=== PATIENT | female | born 1970 ===

== ENCOUNTER 2025-02-24 19:33 | Emergency (ER) | payer OTHER, SELFPAY ==
--- NOTE | ~2025-02-24 | CT_ITS ---
CLINICAL HISTORY: rib pain, fractures CT chest without contrast Comparison: None provided Findings: The heart is normal size. The visualized thyroid and mediastinum are unremarkable. The lungs are clear. The liver is low in attenuation. The bones are intact. IMPRESSION: No rib fracture identified. No definite acute process in the chest. Hepatic steatosis. This document has been electronically signed by: Raffi Bauman MD on 02/24/2025 21:00:32
[2025-02-24 19:35] VITALS: BP 116/79; PULSE 111; RESP 16; TEMP 36.7; O2SAT 94; BMI 25.0
--- NOTE | 2025-02-24 19:35 | ED.GENADULT ---
HPI - General Adult General Chief complaint: Dyspnea Stated complaint: difficulty breathing Time Seen by Provider: 02/24/25 20:56 Source: patient Mode of arrival: ambulatory Limitations: no limitations History of Present Illness ED Provider: JENNIFER GA PA-C HPI narrative: 55 year old female with pmhx significant for asthma/COPD, tobacco dependence with 30 pack year history presents to the ED today for evaluation of left lower rib pain x1 week. She states that while descending her stairs in the dark 1 week ago, she slipped causing her to fall onto her left side. Reports her ribs struck one of the steps. She denies head strike or LOC. Since this time has had localized pain to the area of impact (lower left anterolateral ribs). The pain is making it difficult to take a deep inspiration. She also reports URI symptoms over the past week consisting of cough and wheezing. Her cough is exacerbating her rib pain. She was evaluated at yesterday for symptoms and had a chest x-ray. She has not received the results of this imaging. She is concerned that she may have fractured a rib. She was also prescribed a course of azithromycin, prednisone and albuterol for suspected bronchitis. She is not dependent on supplemental oxygen at home. Denies fever, chills, N/V, hemoptysis, LE pain/swelling. No recent travel or long car rides. Related Data Previous Rx's ?Medication ?Instructions ?Recorded albuterol sulfate 90 mcg/actuation 2 inh inhalation Q20M PRN 02/25/25 breath activated powder inhaler shortness of breath or wheezing #1 ea benzonatate 100 mg capsule 100 mg PO BID PRN cough #20 caps 02/25/25 oxycodone 5 mg tablet 5 mg PO Q8H PRN pain #9 tabs 02/25/25 Allergies Allergy/AdvReac Type Severity Reaction Status Date / Time No Known Allergies Allergy Verified 02/24/25 19:37 Review of Systems Review of Systems: Yes all other systems are reviewed and are negative PMFSH Past Medical History Attestation statement: The following information was validated with the patient. Source: old records reviewed and nursing notes reviewed Social History Social History Alcohol intake: current Alcohol intake frequency: 0-2 drinks per day Smoked in Last 30 Days: Yes Use of substances other than those prescribed or required for medical reasons: Yes Substance Use Type: Marijuana Substance Use Frequency: Daily Advance Directives: No Advance Directives Information Provided: No Do you have a plan to hurt others: No Plan Patient : No Physical Exam ED Vital Signs: Vital Signs - 24 hr 02/24/25 19:35 02/24/25 20:39 02/24/25 21:56 Temperature 98.1 F Pulse Rate 111 H 84 86 Respiratory Rate 16 30 H 18 Blood Pressure 116/79 Pulse Oximetry 94 97 Oxygen Delivery Method Room Air Room Air 02/24/25 22:10 02/25/25 01:26 Temperature 97.4 F 97.7 F Pulse Rate 97 82 Respiratory Rate 26 H 20 Blood Pressure 120/91 H 107/73 Pulse Oximetry 96 94 Oxygen Delivery Method Room Air Room Air BMI result Body Mass Index 25.0 Initially tachycardic, vitals otherwise WNL General: Well appearing, in no acute distress. Skin: Warm, dry, intact. No rashes or lesions. Head: Normocephalic, atraumatic. EENT: Hearing is intact b/l. Conjunctiva clear. Sclera is anicteric. PERRLA. EOM intact. Moist mucous membranes.? Neck: Supple without LAD. FROM. Trachea midline.? Cardiac: ttp along left lower anterolateral chest wall, no crepitus or palpable deformity, symmetric rise/fall of chest, RRR Lungs: No increased effort of breathing, bronchospastic cough noted, no tripoding, expiratory wheezes throughout Abdomen: Soft, non-tender, non-distended. No rebound tenderness or guarding. Positive BS x4. Back: No midline spinous or paraspinal tenderness. No step off deformity. Ext: No pitting edema. No calf tenderness bilaterally Neuro: AOx3. Normal speech. Ambulating with steady gait. Psych: Appropriate mood and affect. Responds appropriately to questions. Course Course Course Narrative: Rapid medical examination performed in triage by Radha Almanzar PA-C. Patient is a 55 year old assigned female at presenting to the emergency department with chest pain and shortness of breath. Patient states that she is currently being evaluated for rib fractures because she has poor bone health secondary to chronic prednisone use. Detailed physical exam and review of systems are deferred to the varnish dipper. EKG, labs, imaging ordered. Patient placed back in the waiting room pending room availability and results. [facility] record shows an acute nondisplaced right 9th rib fx. Reevaluation(s) Reevaluation #1: CBC showing slight leukocytosis to 11.4 without left shift. Likely secondary to recent prednisone. Initial chemistry showing hypokalemia to 2.8, hypomagnesemia to 1.5. Likely secondary to chronic EtOH abuse. She received IV/p.o. Repletion with improvement to potassium of 4.4 and magnesium of 2.2. No other acute electrolyte abnormalities requiring intervention. No SHANNON. Liver function at baseline. Troponin undetectable. EKG showing normal sinus rhythm, rate of 95 beats per minute, QT 346, no acute ischemic changes or ST elevations. D-dimer undetectable, PE unlikely. Will hold on CTA chest. CT chest without evidence of rib fracture. Rib pain improved with IV morphine. Advised tylenol/motrin for rib pain, oxy sent for break through pain. Likely bronchitis - treated with IV solumedrol, mag, albuterol tx with significant improvement in breathing. not hypoxic. satting 87-98% on RA. She is currently being treated with azithromycin and Prednisone outpatient for bronchitis. Advised to continue this therapy. I will send an albuterol inhaler to her pharmacy. Rodrigo Peters sent for cough. Patient has remained stable throughout ED visit today. Discussed worrisome signs and symptoms and when to return to the ED. All questions answered at this time. Patient is agreeable with disposition and stable for discharge. Medications Administered Discontinued Medications Generic Name Dose Route Start Last Admin Trade Name Lucianq PRN Reason Stop Dose Admin Albuterol/Ipratropium 3 ml 02/24/25 21:53 02/24/25 21:54 Albuterol/Iprat 2.5/0.5mg 3 Ml Ampul.Neb INHALE 02/24/25 21:54 3 ml ONCE ONE Administration Potassium Chloride 10 meq in 100 mls @ 100 mls/hr 02/24/25 21:00 02/25/25 00:55 Potassium Chloride/H20 IV 02/24/25 22:59 Infused Q1H QUE Infusion Magnesium Sulfate 2 gm in 50 mls @ 150 mls/hr 02/24/25 21:35 02/24/25 22:33 Magnesium Sulfate/H2o IV 02/24/25 21:54 Infused ONCE ONE Infusion Sodium Chloride 1,000 mls @ 999 mls/hr 02/24/25 21:45 02/24/25 23:28 Ns IV 02/24/25 22:45 Infused .Q1H1M QUE Infusion Ketorolac Tromethamine 30 mg 02/24/25 21:51 02/24/25 22:02 Ketorolac Tromethamine 30 Mg/Ml Vial IVPUSH 02/24/25 21:52 30 mg ONCE ONE Administration Lorazepam 1 mg 02/24/25 21:51 02/24/25 22:03 Lorazepam 1 Mg Tablet PO 02/24/25 21:52 1 mg ONCE ONE Administration Methylprednisolone Sodium Succinate 80 mg 02/24/25 21:35 02/24/25 21:56 Methylprednisolone Sod Succ 125 Mg/2 Ml Vial IVPUSH 02/24/25 21:36 80 mg ONCE ONE Administration Morphine Sulfate 4 mg 02/24/25 23:42 02/24/25 23:59 Morphine Sulfate 4 Mg/Ml Cartridge IVPUSH 02/24/25 23:43 4 mg ONCE ONE Administration Protocol Potassium Chloride 60 meq 02/24/25 20:59 02/24/25 21:29 Potassium Chloride Packet 20 Meq Packet PO 02/24/25 21:00 60 meq ONCE ONE Administration Procedures Smoking Cessation Time Spent Discussing Smoking Cessation w/Patient (min): 5 Patient Acknowledges Need for Cessation: Yes Medical Decision Making Medical Decision Making [facility] Narrative: 55 year old female with pmhx significant for asthma/COPD, tobacco dependence with 30 pack year history presents to the ED today for evaluation of left lower rib pain x1 week. Tachycardic to 111 on arrival. Satting 97% on room air. on exam, ttp along left lower anterolateral chest wall, no crepitus or palpable deformity, symmetric rise/fall of chest, RRR, no increased effort of breathing, no tripoding, bronchospastic cough noted, expiratory wheezes throughout lung [place]. Differential diagnosis includes anemia, electrolyte abnormality, viral syndrome, pneumonia, bronchitis, chest wall contusion, rib fracture, PE, ACS, arrhythmia Plan for labs, viral swabs, EKG, CT chest, breathing treatment, re-evaluation. Differential Diagnosis Differential Diagnoses: The differential diagnosis associated with the presentation includes As above Admission/Observation Not indicated Lab Data [facility] Lab Attestation statement: I reviewed the patient's lab results. As above 02/24/25 19:54 02/25/25 01:26 Labs: Lab Results 02/24/25 02/24/25 02/24/25 Range/Units 19:54 19:58 23:55 WBC 11.4 H (4.8-10.8) X10*3/uL RBC 4.11 L (4.20-5.50) X10*6/uL Hgb 14.7 (12.0-16.0) g/dl Hct 40.6 (37.0-47.0) % MCV 98.8 H (80.0-98.0) fL MCH 35.8 H (27.0-33.0) pg MCHC 36.2 H (31.0-35.0) g/dl RDW 13.6 (11.0-16.0) % Plt Count 184 (160-400) X10*3/uL MPV 8.6 L (9.4-12.3) fL Immature Gran % (Auto) 0.4 (0.0-0.4) % Neut % (Auto) 55.8 (45-73) % Lymph % (Auto) 33.9 (20-40) % Rapides % (Auto) 8.9 (2-11) % Eos % (Auto) 0.6 (0-4) % Baso % (Auto) 0.4 (0-2) % Lymph # (Auto) 3.9 (1.2-4.9) X10*3/uL [place] # (Auto) 1.0 (0.1-1.2) X10*3/uL Eos # (Auto) 0.1 (0.0-0.4) X10*3/uL Baso # (Auto) 0.1 (0.0-0.2) X10*3/uL Abs Immat Gran (auto) 0.05 H (0.00-0.03) X10*3/uL Absolute Neuts (auto) 6.3 (2.0-8.3) x10*3/uL Absolute Nucleated RBC 0.000 (0.0-0.012) X10*3/uL Nucleated RBC % (auto) 0.0 (0.0-0.2) /100WBC D-Dimer High Sensitivty < 150 NG/ML VBG pH 7.46 H (7.32-7.43) VBG pCO2 31 mmHg VBG pO2 104 mmHg VBG HCO3 22 (22-26) mmol/L VBG O2 Saturation 100.0 % VBG Base Excess -0.3 mmol/L Sodium 140 (135-145) mmol/L Potassium 2.8 L* (3.3-5.1) mmol/L Chloride 101 (96-108) mmol/L Carbon Dioxide 23 (22-29) mmol/L Anion Gap 19 (12-20) BUN 18 H (9-16) mg/dL Creatinine 0.75 (0.5-1.4) mg/dL Estim Creat Clear Calc 79.2 Estimated GFR > 60 Random Glucose 99 (60-115) mg/dL Calcium 9.4 (8.4-10.2) mg/dL Magnesium 1.5 L (1.6-2.6) mg/dL Total Bilirubin 0.7 (0.0-1.0) mg/dL AST 42 H (5-31) U/L ALT 31 (0-31) U/L Alkaline Phosphatase 92 (39-117) U/L Troponin I High Sens < 2.7 (<3.5-17.0) ng/L Total Protein 7.4 (6.5-8.0) g/dL Albumin 4.5 (3.5-5.0) g/dL 02/25/25 Range/Units 01:26 WBC (4.8-10.8) X10*3/uL RBC (4.20-5.50) X10*6/uL Hgb (12.0-16.0) g/dl Hct (37.0-47.0) % MCV (80.0-98.0) fL MCH (27.0-33.0) pg MCHC (31.0-35.0) g/dl RDW (11.0-16.0) % Plt Count (160-400) X10*3/uL MPV (9.4-12.3) fL Immature Gran % (Auto) (0.0-0.4) % Neut % (Auto) (45-73) % Lymph % (Auto) (20-40) % Rapides % (Auto) (2-11) % Eos % (Auto) (0-4) % Baso % (Auto) (0-2) % Lymph # (Auto) (1.2-4.9) X10*3/uL [place]ides # (Auto) (0.1-1.2) X10*3/uL Eos # (Auto) (0.0-0.4) X10*3/uL Baso # (Auto) (0.0-0.2) X10*3/uL Abs Immat Gran (auto) (0.00-0.03) X10*3/uL Absolute Neuts (auto) (2.0-8.3) x10*3/uL Absolute Nucleated RBC (0.0-0.012) X10*3/uL Nucleated RBC % (auto) (0.0-0.2) /100WBC D-Dimer High Sensitivty NG/ML VBG pH (7.32-7.43) VBG pCO2 mmHg VBG pO2 mmHg VBG HCO3 (22-26) mmol/L VBG O2 Saturation % VBG Base Excess mmol/L Sodium 138 (135-145) mmol/L Potassium 4.4 D (3.3-5.1) mmol/L Chloride 108 (96-108) mmol/L Carbon Dioxide 20 L (22-29) mmol/L Anion Gap 14 (12-20) BUN 16 (9-16) mg/dL Creatinine 0.59 (0.5-1.4) mg/dL Estim Creat Clear Calc 100.7 Estimated GFR > 60 Random Glucose 131 H (60-115) mg/dL Calcium 8.3 L D (8.4-10.2) mg/dL Magnesium 2.2 (1.6-2.6) mg/dL Total Bilirubin (0.0-1.0) mg/dL AST (5-31) U/L ALT (0-31) U/L Alkaline Phosphatase (39-117) U/L Troponin I High Sens (<3.5-17.0) ng/L Total Protein (6.5-8.0) g/dL Albumin (3.5-5.0) g/dL Independent Interpretation I performed an independent interpretation of an: EKG and CT Scan Interpretation: CT chest without rib fracture EKG showing normal sinus rhythm with a rate of 95 beats per minute, QT 346, no acute ischemic changes or ST elevations Radiology Impression Discussion of test interpretation with radiology: I have reviewed the radiologist's reading. Radiologist Impression: Date of Service: 02/24/25 Procedure(s): CT chest wo IV con Accession Number(s): [id number] cc: Radha Almanzar; Physician,Unknown ~ Report Number: [id number]: Total DLP = 221.00 mGy-cm Reason for Exam: rib pain, fractures CLINICAL HISTORY: rib pain, fractures CT chest without contrast Comparison: None provided Findings: The heart is normal size. The visualized thyroid and mediastinum are unremarkable. The lungs are clear. The liver is low in attenuation. The bones are intact. IMPRESSION: No rib fracture identified. No definite acute process in the chest. Hepatic steatosis. This document has been electronically signed by: Raffi Bauman MD on 02/24/2025 21:00:32 External Record Review External record reviewed: Inpatient record Prescription Management I considered prescription management with: Pain Medication Chronic Conditions Patient?s care impacted by: Other (asthma/copd) Social Determinants Patient?s care significantly limited by Social Determinants of Health including: Other Social Determinant of Health Critical Care Time Critical Care Time Critical Care Time: No Discharge Plan Discharge Clinical Impression: Bronchitis, Rib pain, Hypokalemia, Hypomagnesemia Patient Disposition: Home, Self-Care Instructions: Hypokalemia (ED), Hypomagnesemia (ED) Additional Instructions: You were evaluated in the ED today for rib pain and cough. You were blood work shows low levels of potassium and magnesium. These were repleted in the ED today. Please follow up with your PCP outpatient for repeat blood work to ensure these levels remained stable. Your cardiac enzyme and EKG are normal. The CT scan of your chest does not demonstrate any acute rib fracture. Your D-dimer, a lab test that indicates high probability for clots in your lungs, is undetectable. This is reassuring. I do not feel as though you need a CAT scan with contrast of your chest. Overall, your workup is reassuring. You may take Tylenol and Motrin at home as needed for pain/discomfort. I am sending oxycodone, a controlled pain medication, to your pharmacy for you to take for breakthrough pain control. Please use this with caution as opioid pain medications have addictive properties. Opioid pain medications can often cause constipation. I recommend taking this with an over the counter laxative and/or stool softener to help move your bowels. Take your current prescriptions of azithromycin and prednisone to completion. I have sent an albuterol inhaler to your pharmacy. STOP SMOKING. THIS IS MAKING YOUR SYMPTOMS WORSE. Return with any new or worsening symptoms. In the case of an emergency call 911. Prescriptions: New benzonatate 100 mg capsule 100 mg PO BID PRN (Reason: cough) Qty: 20 0RF albuterol sulfate 90 mcg/actuation aerosol powdr breath activated 2 inh inhalation Q20M PRN (Reason: shortness of breath or wheezing) Qty: 1 0RF oxycodone 5 mg tablet 5 mg PO Q8H PRN (Reason: pain) Qty: 9 0RF Rx Instructions: Partial Fill upon patient request. Referrals: Physician,Unknown J [Primary Care Provider, Medical] Stand Alone Forms: Work/School Release Interventions: ED Discharge Assessment Last Done: 02/25/25 02:34 Discharge Date/Time: 02/25/25 02:36 Print Language: Slovenian
--- NOTE | 2025-02-24 19:38 | ECG_ITS ---
Test Reason : SOB Blood Pressure : */* mmHG Vent. Rate : 95 BPM Atrial Rate : 95 BPM P-R Int : 144 ms QRS Dur : 80 ms QT Int : 346 ms P-R-T Axes : 71 56 41 degrees QTcB Int : 434 ms Normal sinus rhythm Normal ECG No previous ECGs available Referred By: Radha Almanzar Electronically Signed By: REECE DE JESUS
[2025-02-24 19:58] LABS: MANUAL DIFF FLAG NO
[2025-02-24 20:01] LABS: Hematocrit 40.6 % (37.0-47.0); Hemoglobin 14.7 g/dl (12.0-16.0); Imm Gran Abs Auto 0.05 X10*3/uL (0.00-0.03); Imm Gran Pct Auto 0.4 % (0.0-0.4); Lymphocytes Absolute Auto 3.9 X10*3/uL (1.2-4.9); Mean Corpuscular HGB Conc 36.2 g/dl (31.0-35.0); Mean Corpuscular Hemoglobin 35.8 pg (27.0-33.0); Mean Corpuscular Volume 98.8 fL (80.0-98.0); NRBC Abs Auto 0.000 X10*3/uL (0.0-0.012); NRBC Pct Auto 0.0 /100WBC (0.0-0.2); Platelet Count 184 X10*3/uL (160-400); Red Blood Count 4.11 X10*6/uL (4.20-5.50); Venous Blood Gas Refer to POC result; White Blood Count 11.4 X10*3/uL (4.8-10.8)
[2025-02-24 20:02] LABS: VBG HCO3 22 mmol/L (22-26); VBG O2 % Saturation 100.0 %
--- NOTE | 2025-02-24 20:19 | PC.NURSE ---
Critical K of 2.8 taken from Crystal in the lab, pneumatic drum sander Xio made aware.
[2025-02-24 20:20] LABS: Alanine Aminotransferase 31 U/L (0-31); Albumin Level 4.5 g/dL (3.5-5.0); Alkaline Phosphatase 92 U/L (39-117); Anion Gap 19 (12-20); Aspartate Amino Transferase 42 U/L (5-31); Blood Urea Nitrogen 18 mg/dL (9-16); Calcium 9.4 mg/dL (8.4-10.2); Carbon Dioxide 23 mmol/L (22-29); Chloride 101 mmol/L (96-108); Creatinine Clr Calc Pharmacy 79.2; Estimated Glomerular Filt Rate > 60; Potassium 2.8 mmol/L (3.3-5.1); Sodium 140 mmol/L (135-145); Total Protein 7.4 g/dL (6.5-8.0)
[2025-02-24 20:21] LABS: Troponin-I High Sensitivity < 2.7 ng/L (<3.5-17.0)
[2025-02-24 20:39] VITALS: PULSE 84; RESP 30; O2SAT 97
--- OUTSIDE RECORDS SUMMARY | 2025-02-24 21:12 | XMS_ITS | Encounter Summary ---
Author Organization [facility] Address [address] [employer] [facility] [address] [place] [address] Phone Care Team Providers Care Laserist Name Role Phone Carmen Lo MD Unavailable + [phone] Unknown, Unknown Primary Care Provider Tamera Diallo PA-C Primary Care Provider + [phone] Encounter Details Date Type Department Care Team (Late st Contact Info) Description 07/11/2024 Procedure Pass [facility], [address] [address] Social History Tobacco Use Types Packs/Day Years Used Date Smoking Tobacco: Former Cigarettes 1 28 Q uit: 2024 Smokeless Tobacco: Never Comments:Quit smoking two we eks ago. Alcohol Use Standard Drinks/Week Comments Yes 2 (1 standard drink = 0.6 oz pur e alcohol) 2 drinks/week Child or Family Care Answer Date Record ed Do you have problems with on e of the following making it difficult for you to work, study, or receive health care? No 08/12/2021 Education Answer Date Recorded Are you interested in more education? Not on jairo e 08/20/2023 Are you concerned about learning? Not on file 08/20/2023 No 08/20/2023 No 08/20/2023 Food Answer Date Recorded Within the past 6 months we worried whether our food would run out before we got money to buy more. Sometimes True 022 Within the past 6 months the food we bought just didn't last and we didn't have enough money to get more. Never True 07/27 Residential Stability Answer Date Recor ded What is your housing situation today? I have misty walker 08/12/2021 How many times have you move d in the past 12 months? Zero (I did not move) 08/12/2021 06 Are you worried that in t he next 2 months, you may not have your own housing to live in? No 08/12/2021 Paying for Meds Answer Date Recorded Do you have trouble paying for medicines? I irma se not to answer 08/12/2021 Paying Utility Bills Answer Date Record ed Do you have trouble paying y our heating or electricity bill? I choose not to answer 08/12/2021 Transportation Answer Date Recorded Has the lack of transportati on kept you from medical appointments or from getting medications? No 08/12/2021 Unemployment Answer Date Recorded Are you currently unemployed or working on a part-time or temporary basis, and looking for work? No 08/12/2021 Digital Access Answer Date Recorded No 10/20/2022 No 10/20/2022 Reliable internet access at home? Not on file 10/20/2022 Device with a working camera? Not on file Intimate Partner Violence Answer Date R ecorded Denied Basic Needs Not on file 07/11/2024 In the past 12 months have y ou been in a relationship with a person who hurts, threatens, or tries to control you? No 07/11/2024 Worried food would run out Not on file 07/11 In the past 12 months have y ou been in a relationship with a person who hurts, threatens, or tries to control you? No 07/11/2024 Comments No Sex and Gender Information Value Date Recorded Sex Assigned at Not on file Legal Sex Female 7:01 PM EST Gender Identity Not on file Sexual Orientation Not on file documented as of this encounter Plan of Treatment Not on file documented as of this encounter Visit Diagnoses Not on filedocumented in this encounter Additional Health Concerns Assessment Noted Time PHQ-2 Depression Total Score: 0 07/11/19 25 10:39 AM EST documented as of this encounter Care Teams Laserist Relationship Specialty Start Date End Date Unknown, Unknown, MD PCP - General 11/25/23 07/29/24 Tamera Carter PA-C [address] [place] [address] [email or web address] PCP - General Physician Supervisor Histology 07/30/24 Carmen Lo MD [address] [address] Gynecology 07/04/19 documented as of this encounter Additional Source Comments The information contained in this document represents components of the legal health record. It is not the complete legal health record.[facility]
--- OUTSIDE RECORDS SUMMARY | 2025-02-24 21:12 | XMS_ITS | Encounter Summary ---
Author Organization [facility] Address [address] [facility] [address] [place] [address] Phone Care Team Providers Care Detective Sergeant Name Role Phone Carmen Lo MD Unavailable + [phone] Unknown, Unknown Primary Care Provider Tamera Diallo PA-C Primary Care Provider + [phone] Encounter Details Date Type Department Care Team (Late st Contact Info) Description 07/11/2024 Procedure Pass [facility], Ct Scan - [address] [address] Social History Tobacco Use Types Packs/Day Years [...] documented as of this encounter Care Teams Detective Sergeant Relationship Specialty Start Date End Date Unknown, Unknown, PCP - General 11/25/23 07/29/24 Tamera Carter PA-C [address] [place] [address] [email or web address] PCP - General Physician Road Mechanic 07/30/24 Carmen Lo MD [address] [place] [address] [address] Gynecology 07/04/19 documented as of this encounter Additional Source Comments The information contained in this document represents components of the legal health record. It is not the complete legal health record.[facility]
--- OUTSIDE RECORDS SUMMARY | 2025-02-24 21:12 | XMS_ITS | Encounter Summary ---
Author Organization [facility] Address [address] [facility] [address] [place] [address] Phone Care Team Providers Care Bleacher [employer] Name Role Phone Carolynn Owens BULK TANK DRIVER Primary Care Provider [phone] Carmen Lo MD Unavailable [phone] Unknown, Unknown Primary Care Provider Todd simon Unknown, Unknown Primary Care Provider Tamera Diallo PA-C Primary Care Provider + [phone] Encounter Details Date Type Department Care Team (Late st Contact Info) Description 08/12/2021 Procedure Pass [facility], Ct Scan - [address] [address] Social History Tobacco Use Types Packs/Day Years Used Date Smoking Tobacco: Every Day Cigarettes 1 28 Smokeless Tobacco: Never Alcohol Use Standard Drinks/Week Comments Yes 0 (1 standard drink = 0.6 oz pur e alcohol) 2 vodka sodas per day Child or Family Care Answer Date Record ed Do you have problems with on e of the following making it difficult for you to work, study, or receive health care? No 08/12/2021 Education Answer Date Recorded Are you interested in help w ith more adult education (for example, completing high school, GED, job training, learning the Mohawk language, technical skills, or developing parenting skills)? No 08/12/2021 Food Answer Date Recorded Within the past [...] basis, and looking for work? No 08/12/2021 Comments No Sex and Gender Information Value [...] Noted Time PHQ-2 Depression Total Score: 0 08/13/19 22 1:03 PM EDT documented as of this encounter Care Teams Bleacher [employer] Relationship Specialty Start Date End Date Carolynn Owens NP [email or web address] PCP - General Family Medicine 05/30/17 08/20/23 Unknown, Unknown, PCP - General 08/21/23 11/24/23 Unknown, Unknown, PCP - General 11/25/23 07/29/24 Tamera Carter PA-C [address] [place] [address] [email or web address] PCP - General Physician Staff Development Educator 07/30/24 Carmen Lo MD [address] [address] Gynecology 07/04/19 documented as of this encounter Additional Source Comments The information contained in this document represents components of the legal health record. It is not the complete legal health record.[facility]
--- OUTSIDE RECORDS SUMMARY | 2025-02-24 21:12 | XMS_ITS | Clinical Summary ---
Author Organization [facility] Address [address] [facility] [address] [place] [address] Phone Care Team Providers Care Runway Model Name Role Phone Carmen Lo MD Unavailable + [phone] Tamera Carter PA-C Primary Care Provider + [phone] Allergies No known active allergies Medications dextroamphetamine -amphetamine (ADDERALL) 10 mg Tab tablet 10 mg. Active albuterol 90 mcg/actuation inhalerIndication s:Mild intermittent asthma without complication Inhale 2 puffs into the lungs every 6 (six) hours as needed for wheezing. 18 g 2 07/11/2024 Active Active Problems Problem Noted Date Diagnosed Date Routine general medical exam ination at a health care facility 07/11/2024 Assessment & Plan (07/11/2024 3:47 PM EST): Routine lab work ordered. Colon cancer screening 07/11/2024 Assessment & Plan (07/11/2024 3:48 PM EST): Patient declines colonoscopy at this time. She has no family history of colon cancer. Due to her Crohn's disease, she is at higher risk for false positive/negative Cologuard, discussed this with the patient, she would like to continue moving forward with the Cologuard. Cologuard ordered. Former smoker 07/11/2024 Assessment & Plan (07/11/2024 3:47 PM EST): Patient quit smoking approximately 10 days ago. Congratulated the patient on this achievement. She is due for a low-dose CT scan of her chest as she has a 28 pack year history. Low-dose CT scan ordered. Encounter for screening mamm ogram for malignant neoplasm of breast 07/11/2024 Assessment & Plan (07/11/2024 3:48 PM EST): Overdue for mammogram, mammogram ordered. Elevated blood pressure read ing without diagnosis of hypertension 07/11/2024 Assessment & Plan (07/11/2024 3:49 PM EST): Patient noted to have an elevated blood pressure on exam today at 140/92. Previous blood pressure in October 2023 was 145/90. She denies history of hypertension. Advised the patient that she should start taking her blood pressure at home for the next 2 weeks and log it. She should take it when she is most relaxed. Will follow-up in 4 weeks to reassess. Immunization declined 04/01/2022 COPD exacerbation 03/24/2022 Assessment & Plan (05/12/2022 7:49 AM EST): Risks/benefits of therapy explained, including MAT and other treatment options. Start steroid inhaler Albuterol prn Cough Syrup with codeine Educated re potential side effects, etc. Assessment & Plan (03/24/2022 7:59 AM EDT): Long discussion and educ of patient today She has COPD Continue to smoke but has cut down Still with sig wheezing on exam and decreased bs No overt s/s bacterial infection Trial of Medrol Continue inhalers Not ready to return to work yet Crohn's disease of small intestine without compl ication 03/16/2022 Assessment & Plan (05/13/2022 5:19 PM EST): Discussed the fact that she has not f/u with GI I rec'd ref to GI to get better control of the Crohn's I'm going to defer FMLA paperwork on this to Carolynn, her PCP COPD with acute exacerbation 03/03/2022 Assessment & Plan (05/13/2022 5:21 PM EST): Risks/benefits of therapy explained, including MAT and other treatment options. Educated on inhaler uses. Not using Advair as rec'd, I.e. bid Add Medrol educ re potential SEs of med To ER for severe sxs COVID-19 03/03/2022 Assessment & Plan (05/12/2022 7:49 AM EST): Supportive care to continue Rest, hydration Call immediately if worsening symptoms Assessment & Plan (04/01/2022 9:11 AM EDT): Overall patient 85% improved from recent Covid 19 infection with bacterial sinusitis and COPD exacerbation Continue inhalers as directed Stop smoking! Sick note done today during visit F/u PCP Assessment & Plan (03/24/2022 7:59 AM EDT): Likely precipitated the above. Slowly resolving Refill coush syrup - educ re risks of Codeine Assessment & Plan (03/16/2022 3:06 PM EDT): Still seems to be suffering lingering symptoms Fatigue, sinus/nasal congestion Still smoking but has dramatically cut down on number of cig No overt sob Does feel that the Advair is helping a little bit Having more URI sxs Needs note stating when's she's going back I explained to her that I can't predict 1-2 weeks in the future I also need to examine her She agreed to come in for exam early next week Alcohol abuse 11/01/2019 Belching 11/15/2018 Assessment & Plan (07/11/2024 3:45 PM EST): She notes chronic belching and gas in her stomach. She had an endoscopy more than 10 years ago, declines repeat endoscopy. Will obtain H. pylori breath test. [facility] referral placed. Anxiety 03/31/2017 Crohn disease 03/31/2017 Assessment & Plan (07/11/2024 3:47 PM EST): Patient with a history of Crohn's disease, had a colonoscopy and endoscopy more than 10 years ago. No longer following with [facility], most notable symptoms include emesis and diarrhea. On exam having left lower and left upper quadrant abdominal tenderness to palpation. She is not on any medications for her Crohn's disease. Discussed with the patient that I do think is important that she follows up with GI as treatment has changed within the past 10 years and she may find it beneficial for her. [facility] referral placed. Assessment & Plan (05/12/2022 7:50 AM EST): Deferred any questions re Crohns and FMLA to her PCP, Carolynn Patient not being followed by GI and currently not actively being treated Assessment & Plan (04/01/2022 9:13 AM EDT): Patient requesting FMLA paperwork Regarding her Crohns I explained that she needs to be seeking active treatment of the disease especially since she is requesting excused absences from work for the symptoms She agrees to f/u with her GI Doc - Dr. Roe I'll defer FMLA paperwork to GI vs. Her PCP Assessment & Plan (03/24/2022 8:01 AM EDT): Discussed with patient today She's requesting FMLA for the Crohns However, she doesn't see GI regularly I told her I would cover her sick back request for her current Covid COPD exacerbation with aggravation of Crohns but that she'd have to go back to GI for Crohns management I also told her I would defer FMLA paperwork re her Crohns to her regular PCP Assessment & Plan (03/16/2022 6:19 PM EDT): Patient requesting FMLA paperwork for her Crohns Disease I told her that her specialist should be filling this out Mild intermittent asthma without complication Assessment & Plan (07/11/2024 3:44 PM EST): Patient with a history of asthma, has an albuterol inhaler but does not often use it. She is interested in her refill today, order placed. Tobacco abuse 03/31/2017 Assessment & Plan (05/13/2022 5:22 PM EST): Strongly advised her to stop smoking completely Due to fci risks Patient verbalized understanding and agreement of the above Assessment & Plan (05/12/2022 7:51 AM EST): 3-10 Minutes spent during visit on Tobacco Use Education, Counseling and Cessation. Patient educated extensively on risks and benefits of meds Educated that smoking currently while sick with COPD Exacerbation is extremely unsafe Patient verbalized understanding and agreement of the above Assessment & Plan (04/01/2022 9:26 AM EDT): Strongly Encouraged patient to stop smoking Assessment & Plan (03/24/2022 8:02 AM EDT): I, again, strongly encouraged her to stop smoking!! Attention deficit disorder 03/31/2017 Resolved Problems Problem Noted Date Diagnosed Date Resolved Date Overactive child 03/31/2017 03/31/2017 Encounters Date Type Department Care Team Description 01/22/2025 11:33 AM EDT - 01/22/2025 11:59 PM EDT Hospital Encounter [address] [address] Tamera Carter PA-C Discharge Disposition: Home or Self Care 07/11/2024 Procedure Pass [address] [address] from Last 3 Months Immunizations Immunization Administration Dates Next Due Influenza Quadrivalent Preservative Free IM 10/2019 Family History Medical History Relation Comments Arthritis Father Cancer Maternal Grandmother Arthritis Mother Atrial fibrillation Mother Hypertension Mother Breast cancer Neg Hx Relation Status Comments Brother Alive Father Alive Maternal Grandmother Mother Alive Social History Tobacco Use Types Packs/Day Years [...] your housing situation today? I have misty sing 08/12/2021 How many times have you move [...] on file Sexual Orientation Not on file Last Filed Vital Signs Vital Sign Reading Time Taken Comments Blood Pressure 140/92 07/11/2024 2:54 PM EST Pulse 69 07/11/2024 2:54 PM EST Temperature 36.6 C (97.8 F) 07/11/2024 2:54 PM EST Respiratory Rate 16 07/11/2024 2:54 PM EST Oxygen Saturation 97% 07/11/2024 2:54 PM EST Inhaled Oxygen Concentration - - Weight 68 kg (150 lb) 10/10/2024 10:45 AM EDT Height 162.6 cm (5' 4 ) 10/10/2024 10:45 AM EDT Body Mass Index 25.75 10/10/2024 10:45 AM EDT Plan of Treatment Health Maintenance Due Date Last Done Comments Adult Td,Tdap Booster 1970 PNEUMOCOCCAL VACCINES (50+ years) (1 of 2 - PCV) 1989 COLOGUARD 2015 FIT TEST 2015 FOBT 2015 SIGMOIDOSCOPY 2015 VIRTUAL COLONOSCOPY 2015 ZOSTER VACCINES (1 of 2) 02/05/2020 COLONOSCOPY 07/05/2021 07/05/2011 COLORECTAL CANCER SCREENING 07/05/2021 PAP SMEAR 10/20/2024 10/20/2021 SCREENING FOR DIABETES 10/20/2024 10/20/2021 INFLUENZA VACCINE (#1) 2024 07/04/2019 COVID-19 VACCINE ( - season) 2025 DEPRESSION SCREENING 07/11/2025 07/11/2024 SMOKING Hx and SMOKELESS TOBACCO SCREENING 07/11/2025 07/11/2024 LUNG CANCER SCREENING (LDCT Only) 07/24/2025 07/24/2024, 08/21/2021 LIPID PANEL 10/20/2026 10/20/2021 MAMMOGRAM 01/22/2027 01/22/2025, 09/26, 10/05/2016, Additional history exists HEPATITIS C SCREENING Completed 10/20/2021 HIV ONE-TIME SCREENING (18-65 YEARS) Completed 10/20/2021 HEPATITIS A VACCINES Aged Out No long er eligible based on patient's age to complete this topic HIB VACCINES Aged Out No longer eligi ble based on patient's age to complete this topic MENINGOCOCCAL VACCINES (ACWY) Aged Out No longer eligible based on patient's age to complete this topic MENINGOCOCCAL VACCINES (B) Aged Out N o longer eligible based on patient's age to complete this topic Medical Devices Not on file Procedures Procedure Name Priority Date/Time Associated Diagnosis Comments BI MAMMOGRAM SCREENING WITH TOMOSYNTHESIS WITH CAD (BILATERAL) Routine 01/22/2025 11:49 AM EDT Encounter for screening mammogram for malignant neoplasm of breast CT CHEST LUNG CANCER SCREENING ANNUAL Routine 07/24/2024 6:18 PM EST Former smoker LIPID PANEL Routine 10/20/2021 1:11 PM EDT Routine general medical examination at a health care facility HEPATITIS C ANTIBODY, QUALITATIVE Routine 10/20/2021 1:11 PM EDT Need for hepatitis C screening test PAP TEST Routine 10/20/2021 12:00 AM EDT from Last 3 Months or Most Recently Relevant to Health Maintenance Results * BI MAMMOGRAM SCREENING WITH TOMOSYNTHESIS WITH CAD (BILATERAL) (01/22/2025 11:49 AM EDT) Anatomical Region Laterality Modality Breast Left, Breast Right, Breast Bilateral Bila teral Mammography 01/22/2025 4:50 PM EDT Impressions 01/22/2025 4:55 PM EDT No mammographic evidence of malignancy in either breast. Annual screening mammography is recommended. BI-RADS 1 NEGATIVE The patient will be notified of the results and recommendations. Narrative 01/22/2025 4:55 PM EDT BI MAMMOGRAM SCREENING WITH TOMOSYNTHESIS WITH CAD (BILATERAL) Additional patient information: Screening. COMPARISON: Comparison is made with relevant prior imaging. Breast composition: The breasts are heterogeneously dense, which may obscure small masses. FINDINGS: No abnormal masses, suspicious calcifications, or other significant findings are identified mammographically in either breast. Procedure Note Roger Singh MD - 01/22/2025 BI MAMMOGRAM SCREENING WITH TOMOSYNTHESIS WITH CAD (BILATERAL) Additional patient information: Screening. COMPARISON: Comparison is made with relevant prior imaging. Breast composition: The breasts are heterogeneously dense, which mayobscure small masses. FINDINGS: No abnormal masses, suspicious calcifications, or other significantfindings are identified mammographically in either breast. IMPRESSION: No mammographic evidence of malignancy in either breast. Annual screening mammography is recommended. BI-RADS 1 NEGATIVE The patient will be notified of the results and recommendations. Tamera Carter PA-C IMG MG EXAMS Final Result * CT CHEST LUNG CANCER SCREENING ANNUAL (07/24/2024 6:18 PM EST) Anatomical Region Laterality Modality Chest Computed Tomogra phy 07/29/2024 8:38 AM EST Addenda Addendum by Stefanie Allen MD on 07/29/2024 9:07 AM EST ADDENDUM: Addendum is issued to add an impression item: 2. New focal sclerosis in the anterior second, third, and fourth left ribs, likely representing a subacute/chronic rib fractures. Correlation with trauma is suggested. Impressions 07/29/2024 8:43 AM EST Lung-RADS Category: 2. The identified subsegmental endobronchial nodule has a very low likelihood of becoming a clinically active cancer, due to size or lack of growth. RECOMMENDATIONS: Continue Lung-RADS Annual Lung Cancer Screening Chest CT in 12-14 months if patient meets eligibility criteria. To order, please type CT CHEST SCREENING (CT.TH.[email or web address]) and select ANNUAL for patient program status. Explanation of the Lung-RADS categories can be found at: [email or web address] Narrative 07/29/2024 8:[address] CHEST LUNG CANCER SCREENING ANNUAL Referring clinician's provided indication for this examination in [facility]: Lung Cancer Screening - FORMER smoker, quit in past 15 yrs (20+ pk-yrs, age 50-80) - ICD-10 Z87.891 TECHNIQUE: Low dose multidetector CT of the chest was performed without intravenous contrast using tailored dose modulation techniques. COMPARISON: CT CHEST LUNG CANCER SCREENING INITIAL FINDINGS: Devices/Tubes/Lines: None. Lungs: There is mild mucus plugging in a small airway in the the right upper lobe (4:161). Mild diffuse bronchial wall thickening. Small right posterolateral tracheal diverticulum redemonstrated. Patent central airways. Pleura: No pleural effusion or pneumothorax. Mediastinum: No pericardial effusion. No coronary calcification. Lymph Nodes: No enlarged supraclavicular, axillary, or mediastinal lymph nodes by CT size criteria. Upper Abdomen: Absence of intravenous contrast and low dose technique limits sensitivity for detecting small lesions, solid organ and vascular findings. Diffuse reduced attenuation of the liver parenchyma, may signify hepatic steatosis. Chest Wall: No suspicious chest wall mass. Limited evaluation of breast parenchyma by CT. Bones: No destructive osseous lesions. New focal scleroses in the anterior second, third, fourth and left ribs. There is also mild callus formation associated with the third and fourth left ribs. Procedure Note Stefanie Allen MD - 07/29/2024 CT CHEST LUNG CANCER SCREENING ANNUAL Referring clinician's provided indication for this examination in [facility]:Lung Cancer Screening - FORMER smoker, quit in past 15 yrs (20+ pk-yrs,age 50-80) - ICD-10 Z87.891 TECHNIQUE: Low dose multidetector CT of the chest was performed withoutintravenous contrast using tailored dose modulation techniques. COMPARISON: CT CHEST LUNG CANCER SCREENING INITIAL FINDINGS: Devices/Tubes/Lines: None. Lungs: There is mild mucus plugging in a small airway in the the rightupper lobe (4:161). Mild diffuse bronchial wall thickening. Small rightposterolateral tracheal diverticulum redemonstrated. Patent centralairways. Pleura: No pleural effusion or pneumothorax. Mediastinum: No pericardial effusion. No coronary calcification. Lymph Nodes: No enlarged supraclavicular, axillary, or mediastinal lymphnodes by CT size criteria. Upper Abdomen: Absence of intravenous contrast and low dose techniquelimits sensitivity for detecting small lesions, solid organ and vascularfindings. Diffuse reduced attenuation of the liver parenchyma, may signifyhepatic steatosis. Chest Wall: No suspicious chest wall mass. Limited evaluation of breastparenchyma by CT. Bones: No destructive osseous lesions. New focal scleroses in the anteriorsecond, third, fourth and left ribs. There is also mild callus formationassociated with the third and fourth left ribs. IMPRESSION: Lung-RADS Category: 2. The identified subsegmental endobronchial nodulehas a very low likelihood of becoming a clinically active cancer, due tosize or lack of growth. RECOMMENDATIONS: Continue Lung-RADS Annual Lung Cancer Screening Chest CT in 12-14 monthsif patient meets eligibility criteria. To order, please type CT CHEST SCREENING (CT.TH.CHESTSCRS) and selectANNUAL for patient program status. Explanation of the Lung-RADS categories can be found at:[email or web address] Tamera Carter PA-C IMG CT CHEST Edited Resul t - Final * Hepatitis C antibody, qualitative (10/20/2021 1:11 PM EDT) HCV NON-REACTIV E NON-REACTI VE [facility] Blood 10/20/2021 1:11 PM EDT 10/20/2021 1:14 PM EDT Carolynn Owens NP LAB BLOOD ORDERABLES Final Resu lt [facility] [address] [place] [address] * (ABNORMAL) Lipid panel (10/20/2021 1:11 PM EDT) HDL 77 mg/dL [facility] Comment: Interpretation <40 mg/dL: Low HDL cholesterol (major risk factor for CHD) Greater than or equal to 60 mg/dL: High HDL cholesterol ( negative risk factor for CHD) HDL - cholesterol is affected by a number of factors, e.g. smoking, excerise, hormones, sex and age. CHOLESTEROL 211 0 - 240 mg/dL [facility] TRIGLYCERIDES 52 30 - 160 mg/dL [facility] LDL 124 50 - 129 mg/dL [facility] Comment: LDL levels in terms of risk for coronary heart disease: <100 mg/dL: Optimal 100-129 mg/dL: Near or above optimal 130-159 mg/dL: Borderline high 160-189 mg/dL: High >190 mg/dL: Very High CARDIAC RISK RATIO 2.7(L) 3.3 - 4.4 [facility] Blood 10/20/2021 1:11 PM EDT 10/20/2021 1:14 PM EDT us Carolynn Owens NP LAB BLOOD ORDERABLES Final Resu lt [address] [address] * Pap Smear (10/20/2021 12:00 AM EDT) 10/20/2021 10/21/2021 8:4 5 AM EDT Narrative SEE NARRATIVE - 10/27/2021 3:25 PM EDT [address] [address] Foam Machine Operator: Jeimy Finch MD DISTRIBUTION TECHNICIAN Cytology Report FINAL DIAGNOSIS A. PAP SMEAR (SUREPATH) CE: SPECIMEN ADEQUACY: Satisfactory for evaluation; transformation zone present. INTERPRETATION: NEGATIVE FOR INTRAEPITHELIAL LESION OR MALIGNANCY. Reactive changes. Electronically Signed Out By: MD Deanna Garcia CT(ASCP) By his/her signature above, the pathologist listed as making the Final Diagnosis certifies that he/she has personally reviewed this case and confirmed or corrected the diagnosis. The Pap test is a screening test primarily for squamous cancers and precursors and has associated false-negative and false-positive results. New technologies such as liquid-based preparations may decrease but will not eliminate all false-negative results. Regular sampling and follow-up of unexplained clinical signs and symptoms are recommended to minimize false negative results. PROCEDURES/ADDENDA HPV Testing (Requested) Ordered Date: 10/21/2021 A. PAP SMEAR (SUREPATH) CE: Human Papilloma Virus Test Negative for high-risk human papillomavirus types 16, 18, 45 and the Other high risk probe set (Includes 31, 33, 35, 39, 51, 52, 56, 58, 59, 66, 68) by [employer] Onclarity HR-HPV analysis. Clinical correlation is advised. This HPV test was performed at [facility], [address] [place] [address]. This test has been FDA approved for SurePath cervical cytology specimens. The accuracy and precision of this test for all other specimen sources has been verified in the Cytopathology Laboratory of the [facility] and has not been cleared or approved by the U.S. Food and Drug Administration. Clinical correlation is advised. CLINICAL HISTORY Date of Last Menstrual Period: Not Provided Menstrual History: Post Menopausal Other Clinical Conditions: Screening Pap SPECIMEN SOURCE A: PAP SMEAR (SUREPATH) CE Patient Name: VAZQUEZ WEBBER. : 1970 (Age: 51) Sex: F Institution: [facility] Location: [facility] Date of Collection: 10/20/2021 Date of Reported: 10/27/2021 15:25 Results to: Carolynn Owens MSN, BSN us Carolynn Owens OIL PLANT OPERATOR CYTOLOGY ORDERABLES Final Resul t SEE NARRATIVE from Last 3 Months or Most Recently Relevant to Health Maintenance Insurance bfinance [facility] Care Teams Runway Model Relationship Specialty Start Date End Date Tamera Carter PA-C [address] [place] [address] [email or web address] PCP - General Physician Manager Food Beverage 07/30/24 Carmen Lo MD [address] [address] Gynecology 07/04/19 Additional Source Comments The information contained in this document represents components of the legal health record. It is not the complete legal health record.[facility]
--- OUTSIDE RECORDS SUMMARY | 2025-02-24 21:12 | XMS_ITS | Encounter Summary ---
Author Organization [facility] Address [address] [facility] [address] [place] [phone] Phone Care Team Providers Care Consultant Intern Name Role Phone Carmen Lo MD Unavailable + [phone] Tamera Carter PA-C Primary Care Provider + [phone] Encounter Details Date Type Department Care Team (Late st Contact Info) Description 09/16/2024 Procedure Pass [facility] [address] [place] [address] Social History Tobacco Use Types Packs/Day Years [...] documented as of this encounter Care Teams Consultant Intern Relationship Specialty Start Date End Date Tamera Carter PA-C [address] [place] [address] [email or web address] PCP - General Physician Professor Of Graphic Design 07/30/24 Carmen Lo MD [address] [address] Gynecology 07/04/19 documented as of this encounter Additional Source Comments The information contained in this document represents components of the legal health record. It is not the complete legal health record.[facility]
--- OUTSIDE RECORDS SUMMARY | 2025-02-24 21:12 | XMS_ITS | Encounter Summary ---
Author Organization [facility] Address [address] [employer] [address] [address] Phone Care Team Providers Care Rating Officer Name Role Phone Carolynn Owens WESTERN FELT HAT BLOCKER Primary Care Provider [phone] Carmen Lo MD Unavailable [phone] Unknown, Unknown Primary Care Provider Todd simon Unknown, Unknown Primary Care Provider Tamera Diallo PA-C Primary Care Provider + [phone] Encounter Details Date Type Department Care Team (Late st Contact Info) Description 09/30/2021 Ancillary Orders [facility],Outside Imaging [address] [place], [place] [id number] System, Provider Not In, PhD [facility] [address] [address] Social History Tobacco Use Types Packs/Day Years [...] high school, GED, job training, learning the Cuban language, technical skills, or developing parenting skills)? [...] on file documented as of this encounter Results * Mammogram Outside (No Interpretation) (07/10/2013 12:00 AM EST) Narrative SYSTEMGENERATED, DOCUMENTATION - 09/30/2021 3:22 PM EDT This study is for PACS storage only and not for interpretation. us Provider Not In System PhD IMG OUTSIDE IMAGING W /OUT INTERPRETATION Final Result documented in this encounter Visit Diagnoses Not on filedocumented in this encounter Additional Health Concerns Assessment Noted Time PHQ-2 Depression Total Score: 0 08/13/19 22 1:03 PM EDT documented as of this encounter Care Teams Rating Officer Relationship Specialty Start Date End Date Carolynn Owens NP [email or web address] PCP - General Family Medicine 05/30/17 08/20/23 Unknown, Unknown, PCP - General 08/21/23 11/24/23 Unknown, Unknown, MD PCP - General 11/25/23 07/29/24 Tamera Carter PA-C [address] [place] [address] [email or web address] PCP - General Physician Freight Weigher 07/30/24 Carmen Lo MD [address] [address] Gynecology 07/04/19 documented as of this encounter Additional Source Comments The information contained in this document represents components of the legal health record. It is not the complete legal health record.[facility]
--- OUTSIDE RECORDS SUMMARY | 2025-02-24 21:12 | XMS_ITS | Encounter Summary ---
Author Organization [facility] Address [address] [address] Phone Care Team Providers Care Tube Maker Name Role Phone Carmen Lo MD Unavailable + [phone] Tamera Carter PA-C Primary Care Provider + [phone] Reason for Referral * MRI/CAT Scan - Closed Specialty Diagnoses / Procedures Referred By Kimberly john Referred To Contact Radiology Diagnoses Gastroesophageal reflux disease without esophagitis Procedures MRI Enterography Abdomen/Pelvis MRI PELVIS (GI/) CHG MRI, ABDOMEN, COMBO CHG MRI, ABDOMEN (MRI) CHG MRI, ABDOMEN W/CONTRAST CHG MRI, PELVIS, COMBO CHG MRI, PELVIS, W/O CONTRAST Jolie Kunz CNP Phone: tel: fax: [email or web address] Referral ID Status Reason Start Date Expiration Date Visits Re quested Visits Authorized [id number] Closed 09/16/2024 10/15/2024 1 1 Encounter Details Date Type Department Care Team (Latest Contact Info) Description 09/16/2024 Transcribe Orders [facility] Department [address] [place] [address] Jolie Kunz CNP [address] [place] [address] [phone] Gastroesophageal reflux disease without esophagitis (Primary Dx) Social History Tobacco Use Types Packs/Day Years [...] documented as of this encounter Results * MRI ENTEROGRAPHY ABDOMEN AND PELVIS WITH AND WITHOUT CONTRAST (10/14/2024 6:50 PM EDT) Anatomical Region Laterality Modality Pelvis Magnetic Resonan ce 10/17/2024 1:34 PM EDT Impressions 10/17/2024 1:48 PM EDT 1. No evidence of active inflammation is identified. Colonic diverticulosis. No gross adjacent inflammation. 2. Steatosis of the liver. Small hepatic cysts. 3. Fibroid uterus. Narrative 10/17/2024 1:48 PM EDT MRI ENTEROGRAPHY ABDOMEN AND PELVIS WITH AND WITHOUT CONTRAST Referring clinician's provided indication for this examination in Epic: Outside Radiology Order; history of abdominal pain. Gastric reflux. TECHNIQUE: MRI enterography with and without IV contrast. MR enterography was performed following oral contrast administration. This examination is tailored to evaluate for inflammatory changes in the bowel. COMPARISON: CT lung screening dated July 24, 2024. CT lung screening dated August 21, 2021. FINDINGS: BOWEL: There is no mechanical obstruction identified. The stomach is nondilated demonstrating no wall thickening or gross inflammation. The duodenum, and cisternal loops are nondilated demonstrating ring, or active inflammatory changes. The ileum, including the terminal ileum are unremarkable. No wall thickening, intramural edema or abnormal enhancement. No abnormal restricted diffusion is present. Occasional colonic diverticula. No gross adjacent inflammation. The terminal ileum and appendix are unremarkable. LUNG BASES: The heart size is normal without pericardial effusion. No esophageal or paraspinal abnormality. The lung bases are clear. HEPATOBILIARY: No liver masses are seen. Findings likely to represent steatosis. There are few small nonenhancing cyst measuring 2 to 3 mm within the liver. No suspicious enhancement. There is no biliary dilatation. GALLBLADDER: There are no filling defects, wall thickening or adjacent inflammation. The common duct is of normal caliber for age. PANCREAS: The pancreas reveals no mass, duct dilation or inflammation. SPLEEN: The spleen is normal in size without mass. RENAL: No hydronephrosis, masses or perinephric collections. No renal cysts are present. No ureteral dilation or focal lesion. ADRENAL: The adrenal glands are normal. RETROPERITONEUM: No retroperitoneal hematoma or masses. MESENTERY: No free fluid or free air. No masses. NODES: No adenopathy. VASCULAR: The aorta is nonaneurysmal. No vascular occlusion is identified. PELVIS: The urinary bladder is without wall thickening or luminal abnormality. There is some heterogeneity of the uterus, with a probable fibroid identified along the body fundal junction on the right measuring 21 x 23 mm (image 32, series 6). No free pelvic fluid collections are present. SOFT TISSUES: Unremarkable. BONES: No acute or suspicious osseous lesions. Procedure Note Nine, Martin Farah MD - 10/17/2024 MRI ENTEROGRAPHY ABDOMEN AND PELVIS WITH AND WITHOUT CONTRAST Referring clinician's provided indication for this examination in Epic:Outside Radiology Order; history of abdominal pain. Gastric reflux. TECHNIQUE: MRI enterography with and without IV contrast. MR enterographywas performed following oral contrast administration. This examination istailored to evaluate for inflammatory changes in the bowel. COMPARISON: CT lung screening dated July 24, 2024. CT lung screeningdated August 21, 2021. FINDINGS: BOWEL: There is no mechanical obstruction identified. The stomach isnondilated demonstrating no wall thickening or gross inflammation. Theduodenum, and cisternal loops are nondilated demonstrating ring, or activeinflammatory changes. The ileum, including the terminal ileum areunremarkable. No wall thickening, intramural edema or abnormalenhancement. No abnormal restricted diffusion is present. Occasionalcolonic diverticula. No gross adjacent inflammation. The terminal ileumand appendix are unremarkable. LUNG BASES: The heart size is normal without pericardial effusion. Noesophageal or paraspinal abnormality. The lung bases are clear. HEPATOBILIARY: No liver masses are seen. Findings likely to representsteatosis. There are few small nonenhancing cyst measuring 2 to 3 mmwithin the liver. No suspicious enhancement. There is no biliarydilatation. GALLBLADDER: There are no filling defects, wall thickening or adjacentinflammation. The common duct is of normal caliber for age. PANCREAS: The pancreas reveals no mass, duct dilation or inflammation. SPLEEN: The spleen is normal in size without mass. RENAL: No hydronephrosis, masses or perinephric collections. No renalcysts are present. No ureteral dilation or focal lesion. ADRENAL: The adrenal glands are normal. RETROPERITONEUM: No retroperitoneal hematoma or masses. MESENTERY: No free fluid or free air. No masses. NODES: No adenopathy. VASCULAR: The aorta is nonaneurysmal. No vascular occlusion isidentified. PELVIS: The urinary bladder is without wall thickening or luminalabnormality. There is some heterogeneity of the uterus, with a probablefibroid identified along the body fundal junction on the right [id number] x 23 mm (image 32, series 6). No free pelvic fluid collections arepresent. SOFT TISSUES: Unremarkable. BONES: No acute or suspicious osseous lesions. IMPRESSION: 1. No evidence of active inflammation is identified. Colonicdiverticulosis. No gross adjacent inflammation. 2. Steatosis of the liver. Small hepatic cysts. 3. Fibroid uterus. Jolie Kunz CNP IMG MR ABDOMEN Final Resu lt documented in this encounter Visit Diagnoses Diagnosis Gastroesophageal reflux disease without esophagitis- Primary Esophageal reflux Gastroesophageal reflux disease without esophagitis Esophageal reflux documented in this encounter Additional Health Concerns Assessment Noted Time PHQ-2 Depression Total Score: 0 07/11/19 25 10:39 AM EST documented as of this encounter Care Teams Tube Maker Relationship Specialty Start Date End Date Tamera Carter PA-C [address] [place] [address] [email or web address] PCP - General Physician Horse Trader 07/30/24 Carmen Lo MD [address] [facility] [address] [place] [address] Gynecology 07/04/19 documented as of this encounter Additional Source Comments The information contained in this document represents components of the legal health record. It is not the complete legal health record.[facility]
--- OUTSIDE RECORDS SUMMARY | 2025-02-24 21:12 | XMS_ITS | Encounter Summary ---
Author Organization [facility] Address [address] [employer] [facility] [address] [place] [address] Phone Care Team Providers Care Massage Therapist Name Role Phone Carolynn Owens SHREDDER TENDER Primary Care Provider [phone] Carmen Lo MD Unavailable [phone] Unknown, Unknown Primary Care Provider Todd simon Unknown, Unknown Primary Care Provider Tamera Diallo PA-C Primary Care Provider + [phone] Encounter Details Date Type Department Care Team (Late st Contact Info) Description 08/12/2021 Procedure Pass [facility], [address] [address] Social History Tobacco Use Types Packs/Day Years [...] high school, GED, job training, learning the Polish language, technical skills, or developing parenting skills)? [...] documented as of this encounter Care Teams Massage Therapist Relationship Specialty Start Date End Date Carolynn Owens NP PCP - General Family Medicine 05/30/17 08/20/23 Unknown, Unknown, PCP - General 08/21/23 11/24/23 Unknown, Unknown, PCP - General 11/25/23 07/29/24 Tamera Carter PA-C [address] [place] [address] [email or web address] PCP - General Physician Forming Press Operator 07/30/24 Carmen Lo MD [address] [address] Gynecology 07/04/19 documented as of this encounter Additional Source Comments The information contained in this document represents components of the legal health record. It is not the complete legal health record.[facility]
--- OUTSIDE RECORDS SUMMARY | 2025-02-24 21:12 | XMS_ITS | Patient Health Record ---
Author Organization [facility] Address [address] [facility] [address] [place] [address] Care Team Providers Care Academic Records Specialist Name Role Phone STEPH BEYER N.P. Primary Care Provider Carmen Iqbal Unavailable [phone] Reason For Referral No Information Medications Medication SIG (Take, Route, Frequency, Duration) Notes Start Date End Date Status Adderall 10 MG 1 tablet in the morn ing Orally Once a day Active ProAir HFA 108 (90 Base) MCG/ACT 2 puffs as needed Inhalation every 4 hrs Active Lotrisone 1-0.05 % 1 application to aff ected area Externally Twice a day; Duration: 14 days 09/29/2014 Active Aygestin 5 MG 1 tablet Orally INSTRUCTED THEN DAILY FOR 10 DAYS IF NO MENSES FOR 3 MONTHS OR LONGER; Duration: 90 days 10/22/2014 Active Problems Problem Type SNOMED Code ICD Code Onset Dates Problem Status W/U Status Risk Notes Problem Excessive and frequent menstruation (408359490) Excessive or frequent menstruation (626.2) Active confirmed Diag Plan Of Treatment Pending Test Test Name Order Date Sonohysterogram 09/29/2014 MAMMOGRAM, SCREENING 09/29/2014 ENDOMETRIAL BX 10/17/2014 ENDOMETRIAL BX 09/29/2014 Insurance Providers Payer Name Payer Address Payer Phone Subscriber Number Group Number Insured Name Patient Relationship to Insured Coverage Start Date Coverage End Date [facility] IN[facility]MNITY PLAN [address] [place], [place] [id number] VAZQUEZ WEBBER Self - patient is the insured Medical (General) History Medical History History ICD Code Excessive and frequent menstruation with regular cycle N92.0
[2025-02-24 21:13] LABS: Magnesium 1.5 mg/dL (1.6-2.6)
[2025-02-24] MEDS: Potassium Chloride Packet 20 MEQ PACKET 60 MEQ PO (21:29)
[2025-02-24] MEDS: Potassium Chloride/H20 10 MEQ/100 ML PIGGYBACK 100 MEQ IV ×2 (21:34→23:28)
[2025-02-24] MEDS: Albuterol/Iprat 2.5/0.5MG 3 ML AMPUL.NEB INHALE (21:54)
[2025-02-24 21:56] VITALS: PULSE 86; RESP 18; O2SAT 97
[2025-02-24] MEDS: Magnesium Sulfate/H2O 2 GM/50 ML PIGGYBACK IV (21:56)
[2025-02-24 22:10] VITALS: BP 120/91; PULSE 97; RESP 26; TEMP 36.3; O2SAT 96
[2025-02-25 00:39] LABS: D Dimer High Sensitivity < 150 NG/ML
[2025-02-25 01:26] VITALS: BP 107/73; PULSE 82; RESP 20; TEMP 36.5; O2SAT 94
[2025-02-25 02:02] LABS: Anion Gap 14 (12-20); Blood Urea Nitrogen 16 mg/dL (9-16); Calcium 8.3 mg/dL (8.4-10.2); Carbon Dioxide 20 mmol/L (22-29); Chloride 108 mmol/L (96-108); Creatinine Clr Calc Pharmacy 100.7; Estimated Glomerular Filt Rate > 60; Magnesium 2.2 mg/dL (1.6-2.6); Potassium 4.4 mmol/L (3.3-5.1); Sodium 138 mmol/L (135-145)
[2025-02-25 02:34] VITALS: BP 107/77; PULSE 98; RESP 14; TEMP 36.5; O2SAT 98
== END 2025-02-25 02:36 | disposition home or self-care (01) ==
PROVIDERS: Physician Assistant Medical; Emergency Provider Student in an Organized Health Care Education/Training Program
DX: R07.81 Pleurodynia (principal); J40 Bronchitis, not specified as acute or chronic; J44.9 Chronic obstructive pulmonary disease, unspecified; E87.6 Hypokalemia; E83.42 Hypomagnesemia; F10.20 Alcohol dependence, uncomplicated; Z71.6 Tobacco abuse counseling; Z79.899 Other long term (current) drug therapy; Z72.0 Tobacco use
CPT/HCPCS: 36415; 71250; 80048; 80053; 82803; 83735; 84484; 85025; 85379; 93005; 94640; 96365; 96366; 96375; 99285; J1885; J2270; J2919; J3475; J3480

== ENCOUNTER → 2025-02-24 19:38 | Outpatient (BNV) | payer OTHER, SELFPAY | PROVIDERS: Emergency Provider Student in an Organized Health Care Education/Training Program; Visit Provider Internal Medicine | DX: R06.02 Shortness of breath (principal) | CPT/HCPCS: 93010 ==

== ENCOUNTER → 2025-02-24 19:38 | Outpatient (BNV) | payer OTHER, SELFPAY | PROVIDERS: Emergency Provider Student in an Organized Health Care Education/Training Program; Visit Provider Radiology Vascular & Interventional Radiology | DX: R07.89 Other chest pain (principal); K76.0 Fatty (change of) liver, not elsewhere classified | CPT/HCPCS: 71250 ==

== ENCOUNTER 2025-02-26 12:49 | Emergency (ER) | payer OTHER, SELFPAY ==
--- NOTE | 2025-02-26 13:36 | PC.NURSE ---
patient called multiple times in wr without response.
--- OUTSIDE RECORDS SUMMARY | 2025-02-26 14:47 | XMS_ITS | Encounter Summary ---
Author Organization [facility] Address [address] [address] Phone Care Team Providers Care Pile Driver Operator Helper Name Role Phone Carmen Lo MD Unavailable + [phone] Tamera Carter PA-C Primary Care Provider + [phone] Reason for Referral * MRI/CAT Scan - Closed Specialty Diagnoses / Procedures Referred By Kimberly john Referred To Contact Radiology Diagnoses Gastroesophageal reflux disease without esophagitis Procedures MRI Enterography Abdomen/Pelvis MRI PELVIS (GI/) CHG MRI, ABDOMEN, COMBO CHG MRI, ABDOMEN (MRI) CHG MRI, ABDOMEN W/CONTRAST CHG MRI, PELVIS, COMBO CHG MRI, PELVIS, W/O CONTRAST Jolie Kunz CNP Phone: tel: fax: [email or web address] Referral ID Status Reason Start Date Expiration Date Visits Re quested Visits Authorized [id number] Closed 09/16/2024 10/15/2024 1 1 Encounter Details Date Type Department Care Team (Latest Contact Info) Description 09/16/2024 Transcribe Orders [facility] Department [address] [place] [address] Jolie Kunz CNP [address] [place] [address] [phone] Gastroesophageal reflux disease without esophagitis (Primary Dx) [...] the body fundal junction on the right [id number] x 23 mm (image 32, series 6). [...] documented as of this encounter Care Teams Pile Driver Operator Helper Relationship Specialty Start Date End Date Tamera Carter PA-C [address] [place] [address] PCP - General Physician Reporting Consultant 07/30/24 Carmen Lo MD [address] [facility] [address] [place] [address] Gynecology 07/04/19 documented as of this encounter Additional Source Comments The information contained in this document represents components of the legal health record. It is not the complete legal health record.[facility]
--- OUTSIDE RECORDS SUMMARY | 2025-02-26 14:47 | XMS_ITS | Encounter Summary ---
Author Organization [facility] Address [address] [employer] [facility] [address] [place] [address] Phone Care Team Providers Care Head School Custodian Name Role Phone Carolynn Owens MOBILE APPLICATION ARCHITECT Primary Care Provider [phone] Carmen Lo MD Unavailable [phone] Unknown, Unknown Primary Care Provider Todd simon Unknown, Unknown Primary Care Provider Tamera Diallo PA-C Primary Care Provider + [phone] Encounter Details Date Type Department Care Team (Late st Contact Info) Description 08/12/2021 Procedure Pass [facility], [address] [address] Social History Tobacco Use Types Packs/Day Years [...] high school, GED, job training, learning the Azeri language, technical skills, or developing parenting skills)? [...] documented as of this encounter Care Teams Head School Custodian Relationship Specialty Start Date End Date Carolynn Owens NP PCP - General Family Medicine 05/30/17 08/20/23 Unknown, Unknown, PCP - General 08/21/23 11/24/23 Unknown, Unknown, PCP - General 11/25/23 07/29/24 Tamera Carter PA-C [address] [place] [address] [email or web address] PCP - General Physician Irradiated Fuel Handler 07/30/24 Carmen Lo MD [address] [address] Gynecology 07/04/19 documented as of this encounter Additional Source Comments The information contained in this document represents components of the legal health record. It is not the complete legal health record.[facility]
--- OUTSIDE RECORDS SUMMARY | 2025-02-26 14:47 | XMS_ITS | Encounter Summary ---
Author Organization [facility] Address [address] [facility] [address] [place] [address] Phone Care Team Providers Care Teenage Program Director Name Role Phone Carmen Lo MD Unavailable + [phone] Unknown, Unknown Primary Care Provider Tamera Diallo PA-C Primary Care Provider + [phone] Encounter Details Date Type Department Care Team (Late st Contact Info) Description 07/11/2024 Procedure Pass [facility], Ct Scan - [address] [address] Social History Tobacco Use Types Packs/Day Years [...] documented as of this encounter Care Teams Teenage Program Director Relationship Specialty Start Date End Date Unknown, Unknown, PCP - General 11/25/23 07/29/24 Tamera Carter PA-C [address] [place] [address] [email or web address] PCP - General Physician Accounting Methods Analyst 07/30/24 Carmen Lo MD [address] [address] Gynecology 07/04/19 documented as of this encounter Additional Source Comments The information contained in this document represents components of the legal health record. It is not the complete legal health record.[facility]
--- OUTSIDE RECORDS SUMMARY | 2025-02-26 14:47 | XMS_ITS | Clinical Summary ---
Author Organization [facility] Address [address] [employer] [facility] [address] [place] [address] Phone Care Team Providers Care Emu Farmer Name Role Phone Carmen Lo MD Unavailable + [phone] Tamera Carter PA-C Primary Care Provider + [phone] Allergies No known active allergies Medications dextroamphetamine [...] endoscopy. Will obtain H. pylori breath test. [facility] referral placed. Anxiety 03/31/2017 Crohn disease 03/31/2017 Assessment & Plan (07/11/2024 3:47 PM EST): Patient with a history of Crohn's disease, had a colonoscopy and endoscopy more than 10 years ago. No longer following with [facility], most notable symptoms include emesis and [...] she may find it beneficial for her. [facility] referral placed. Assessment & Plan (05/12/2022 [...] her to stop smoking completely Due to half-way risks Patient verbalized understanding and agreement of [...] - 01/22/2025 11:59 PM EDT Hospital Encounter [address] [address] Tamera Crater PA-C Discharge Disposition: Home or Self Care 07/11/2024 Procedure Pass [address] [address] from Last 3 Months Immunizations Immunization Administration [...] clinician's provided indication for this examination in [facility]: Lung Cancer Screening - FORMER smoker, quit [...] clinician's provided indication for this examination in [facility]:Lung Cancer Screening - FORMER smoker, quit in [...] PM EDT) HCV NON-REACTIV E NON-REACTI VE [facility] Blood 10/20/2021 1:11 PM EDT 10/20/2021 1:14 PM EDT Carolynn Owens NP LAB BLOOD ORDERABLES Final Resu lt [facility] [address] [place] [address] * (ABNORMAL) Lipid panel (10/20/2021 1:11 PM EDT) HDL 77 mg/dL [facility] Comment: Interpretation <40 mg/dL: Low HDL cholesterol (major risk factor for CHD) Greater than or equal to 60 mg/dL: High HDL cholesterol ( negative risk factor for CHD) HDL - cholesterol is affected by a number of factors, e.g. smoking, excerise, hormones, sex and age. CHOLESTEROL 211 0 - 240 mg/dL [facility] TRIGLYCERIDES 52 30 - 160 mg/dL [facility] LDL 124 50 - 129 mg/dL [facility] Comment: LDL levels in terms of risk for coronary heart disease: <100 mg/dL: Optimal 100-129 mg/dL: Near or above optimal 130-159 mg/dL: Borderline high 160-189 mg/dL: High >190 mg/dL: Very High CARDIAC RISK RATIO 2.7(L) 3.3 - 4.4 [facility] Blood 10/20/2021 1:11 PM EDT 10/20/2021 1:14 PM EDT us Carolynn Owens NP LAB BLOOD ORDERABLES Final Resu lt [address] [address] * Pap Smear (10/20/2021 12:00 AM EDT) 10/20/2021 10/21/2021 8:4 5 AM EDT Narrative SEE NARRATIVE - 10/27/2021 3:25 PM EDT [address] [address] Violin Tutor: Jeimy Finch MD COAL WASHER TENDER Cytology Report FINAL DIAGNOSIS A. PAP SMEAR [...] 52, 56, 58, 59, 66, 68) by [employer] Onclarity HR-HPV analysis. Clinical correlation is advised. This HPV test was performed at [facility], [address] [place] [address]. This test has been FDA approved for SurePath cervical cytology specimens. The accuracy and precision of this test for all other specimen sources has been verified in the Cytopathology Laboratory of the [facility] and has not been cleared or approved by the U.S. Food and Drug Administration. Clinical correlation is advised. CLINICAL HISTORY Date of Last Menstrual Period: Not Provided Menstrual History: Post Menopausal Other Clinical Conditions: Screening Pap SPECIMEN SOURCE A: PAP SMEAR (SUREPATH) CE Patient Name: VAZQUEZ WEBBER. : 1970 (Age: 51) Sex: F Institution: [facility] Location: [facility] Date of Collection: 10/20/2021 Date of Reported: 10/27/2021 15:25 Results to: Carolynn Owens MSN, BSN us Carolynn Owens WEIGHT LOSS SALES CONSULTANT CYTOLOGY ORDERABLES Final Resul t SEE NARRATIVE from Last 3 Months or Most Recently Relevant to Health Maintenance Insurance [employer] [facility] COMMUNITY CHOICE [facility] CHO[facility] CHOICE [facility] CHOICE [facility] CHOICE Care Teams Emu Farmer Relationship Specialty Start Date End Date Tamera Carter PA-C [address] [place] [address] [email or web address] PCP - General Physician Rock Crusher Operator 07/30/24 Carmen Lo MD [address] [address] Gynecology 07/04/19 Additional Source Comments The information contained in this document represents components of the legal health record. It is not the complete legal health record.[facility]
--- OUTSIDE RECORDS SUMMARY | 2025-02-26 14:47 | XMS_ITS | Encounter Summary ---
Author Organization [facility] Address [address] [employer] [facility] [address] [place] [id number] Phone Care Team Providers Care Patient Centered Care Specialist Name Role Phone Carmen Lo MD Unavailable + [phone] Unknown, Unknown Primary Care Provider Tamera Diallo PA-C Primary Care Provider + [phone] Encounter Details Date Type Department Care Team (Late st Contact Info) Description 07/11/2024 Procedure Pass [facility], [address] [address] Social History Tobacco Use Types Packs/Day Years [...] documented as of this encounter Care Teams Patient Centered Care Specialist Relationship Specialty Start Date End Date Unknown, Unknown, MD PCP - General 11/25/23 07/29/24 Tamera Carter PA-C [address] [place] [address] [email or web address] PCP - General Physician Appointment Clerk 07/30/24 Carmen Lo MD [address] [address] Gynecology 07/04/19 documented as of this encounter Additional Source Comments The information contained in this document represents components of the legal health record. It is not the complete legal health record.[facility]
--- OUTSIDE RECORDS SUMMARY | 2025-02-26 14:47 | XMS_ITS | Encounter Summary ---
Author Organization [facility] Address [address] [employer] [facility] [address] [place] [address] Phone Care Team Providers Care Supervisor Unloading Name Role Phone Carolynn Owens CARD FIXER Primary Care Provider [phone] Carmen Lo MD Unavailable [phone] Unknown, Unknown Primary Care Provider Todd simon Unknown, Unknown Primary Care Provider Tamera Diallo PA-C Primary Care Provider + [phone] Encounter Details Date Type Department Care Team (Late st Contact Info) Description 08/12/2021 Procedure Pass [facility] - [address] [address] Social History Tobacco Use Types Packs/Day Years [...] high school, GED, job training, learning the Congolese language, technical skills, or developing parenting skills)? [...] documented as of this encounter Care Teams Supervisor Unloading Relationship Specialty Start Date End Date Carolynn Owens NP [email or web address] PCP - General Family Medicine 05/30/17 08/20/23 Unknown, Unknown, PCP - General 08/21/23 11/24/23 Unknown, Unknown, PCP - General 11/25/23 07/29/24 Tamera Carter PA-C [address] [place] [address] [email or web address] PCP - General Physician Sweet Goods Machine Operator 07/30/24 Carmen Lo MD [address] [address] Gynecology 07/04/19 documented as of this encounter Additional Source Comments The information contained in this document represents components of the legal health record. It is not the complete legal health record.[facility]
--- OUTSIDE RECORDS SUMMARY | 2025-02-26 14:47 | XMS_ITS | Encounter Summary ---
Author Organization [facility] Address [address] [employer] [address] [address] Phone Care Team Providers Care Cutter Out Name Role Phone Carolynn Owens FRONT OFFICE HELP Primary Care Provider [phone] Carmen Lo MD Unavailable [phone] Unknown, Unknown Primary Care Provider Todd simon Unknown, Unknown Primary Care Provider Tamera Diallo PA-C Primary Care Provider + [phone] Encounter Details Date Type Department Care Team (Late st Contact Info) Description 09/30/2021 Ancillary Orders [facility],Outside Imaging [address] [place], [place] [id number] System, Provider Not In, [facility] [address] [address] Social History Tobacco Use Types Packs/Day Years [...] high school, GED, job training, learning the Bulgarian language, technical skills, or developing parenting skills)? [...] documented as of this encounter Care Teams Cutter Out Relationship Specialty Start Date End Date Carolynn Owens NP [email or web address] PCP - General Family Medicine 05/30/17 08/20/23 Unknown, Unknown, PCP - General 08/21/23 11/24/23 Unknown, Unknown, MD PCP - General 11/25/23 07/29/24 Tamera Carter PA-C [address] [place] [address] [email or web address] PCP - General Physician Scaffold Erector 07/30/24 Carmen Lo MD [address] [address] Gynecology 07/04/19 documented as of this encounter Additional Source Comments The information contained in this document represents components of the legal health record. It is not the complete legal health record.[facility]
--- OUTSIDE RECORDS SUMMARY | 2025-02-26 14:47 | XMS_ITS | Encounter Summary ---
Author Organization [facility] Address [address] [employer] [facility] [address] [place] [address] Phone Care Team Providers Care Financial Retirement Plan Specialist Name Role Phone Carmen Lo MD Unavailable + [phone] Tamrea Carter PA-C Primary Care Provider + [phone] Encounter Details Date Type Department Care Team (Late st Contact Info) Description 09/16/2024 Procedure Pass [facility] [address] [place] [address] Social History Tobacco Use Types Packs/Day Years [...] documented as of this encounter Care Teams Financial Retirement Plan Specialist Relationship Specialty Start Date End Date Tamera Carter PA-C [address] [place] [address] [email or web address] PCP - General Physician Chute Builder 07/30/24 Carmen Lo MD [address] [address] Gynecology 07/04/19 documented as of this encounter Additional Source Comments The information contained in this document represents components of the legal health record. It is not the complete legal health record.[facility]
== END 2025-02-26 13:41 | disposition left against medical advice (07) ==
PROVIDERS: Emergency Provider Emergency Medicine
DX: R06.02 Shortness of breath (principal); Z53.21 Procedure and treatment not carried out due to patient leaving prior to being seen by health care provider